=== PATIENT | male | born 1950 | race Two or more races ===

== ENCOUNTER → 2019-09-15 | Outpatient (CLI) | payer OTHER ==
--- NOTE | 2019-09-15 09:57 | REP ---
Clinical: Chest pain. Technique: PA and lateral. Comparison: None. Findings: Very subtle bibasilar opacities suggest atelectasis/early pneumonia and clinical correlation is recommended. No effusion. No pneumothorax. Cardiac silhouette is normal. Skeletal structures are intact. Impression: Very subtle bibasilar opacities suggest atelectasis/early infiltrate. Clinical correlation is recommended. Electronically Signed by Asher Saldivar MD 09/15/2019 09:48 A
== END ==
LOC: M RAD 08:55
PROVIDERS: ATTEND Surgery
DX: R91.8 Other nonspecific abnormal finding of lung field (principal)